=== PATIENT | female | born 1995 | race Caucasian/White ===

== ENCOUNTER 2023-03-19 17:49 | Emergency (ER) | payer OTHER ==
[2023-03-19 17:58] VITALS: BP 120/60; PULSE 68; RESP 18; TEMP 98.5; BMI 24.5
[2023-03-19 20:35] LABS: BASO % 0.4 % (0-2.0); HEMOGLOBIN 13.3 GM/dL (10.7-15.3); MCH 31.2 pg (25.7-33.7); MCHC 34.9 g/dl (32.0-36.0); MEAN CELL VOLUME 89.3 fl (80-96); MEAN PLT VOLUME 7.7 fl (7.5-11.1); NEUT % 56.6 % (42.8-82.8); PLATELET COUNT 362 10^3/uL (134-434); RBC 4.25 M/mm3 (3.60-5.2); RDW 13.4 % (11.6-15.6); WHITE BLOOD COUNT 7.7 K/mm3 (4.0-10.0)
[2023-03-19 20:59] LABS: CALCIUM 8.6 mg/dL (8.5-10.1); POTASSIUM 3.7 mmol/L (3.5-5.1)
[2023-03-19 21:00] LABS: ALBUMIN 3.8 g/dl (3.4-5.0); BLOOD UREA NITROGEN 11.5 mg/dL (7-18)
[2023-03-19 21:03] LABS: CREATININE 0.8 mg/dL (0.55-1.3)
[2023-03-19 21:05] LABS: BILIRUBIN,TOTAL 0.3 mg/dL (0.2-1); TOT PROT 7.3 g/dl (6.4-8.2)
[2023-03-19] MEDS ORDERED: ACETAMINOPHEN 325 MG TABLET (FP) PO STA (22:39)
[2023-03-19] MEDS ORDERED: ACETAMINOPHEN 325 MG TABLET (FP) ONE (22:51)
== END 2023-03-19 23:09 | disposition home or self-care (01) ==
LOC: JER 17:49
DX: O03.9 Complete or unspecified spontaneous abortion without complication (principal)
CPT/HCPCS: 36415; 76817-TC; 80053; 84702; 85025; 86850; 86900; 86901; 99284-25

== ENCOUNTER 2023-03-21 16:41 | Emergency (ER) | payer OTHER ==
[2023-03-21 16:49] VITALS: BP 108/57; PULSE 66; RESP 18; TEMP 98.5; BMI 25.0
== END 2023-03-21 19:52 | disposition home or self-care (01) ==
LOC: JERFT 16:41
DX: O20.8 Other hemorrhage in early pregnancy (principal); Z3A.01 Less than 8 weeks gestation of pregnancy
CPT/HCPCS: 36415; 84702; 99283-25

== ENCOUNTER 2023-05-14 11:30 | Emergency (ER) | payer OTHER ==
[2023-05-14 12:17] VITALS: PULSE 65; TEMP 98.2; BMI 27.3
[2023-05-14 13:26] LABS: HCG,QUALITATIVE URINE Positive
[2023-05-14 13:27] LABS: PH,URINE 5.5 (5.0-8.0); URINE APPEARANCE CLEAR; URINE BILIRUBIN NEGATIVE (NEGATIVE); URINE COLOR YELLOW; URINE GLUCOSE (UA) TRACE (NEGATIVE); URINE KETONE NEGATIVE (NEGATIVE); URINE LEUK ESTERASE NEGATIVE (NEGATIVE); URINE NITRITE NEGATIVE (NEGATIVE); URINE PROTEIN NEGATIVE (NEGATIVE); URINE UROBILINOGEN 0.2 mg/dL (0.2-1.0)
[2023-05-14 13:48] LABS: BASO % 0.3 % (0-2.0); EOS % 2.1 % (0-4.5); HEMATOCRIT 35.8 % (32.4-45.2); HEMOGLOBIN 12.3 GM/dL (10.7-15.3); LYMPH % 25.9 % (8-40); MCHC 34.5 g/dl (32.0-36.0); MEAN CELL VOLUME 90.1 fl (80-96); MEAN PLT VOLUME 7.8 fl (7.5-11.1); MONO % 7.7 % (3.8-10.2); PLATELET COUNT 310 10^3/uL (134-434); RBC 3.98 M/mm3 (3.60-5.2); RDW 13.3 % (11.6-15.6); WHITE BLOOD COUNT 9.3 K/mm3 (4.0-10.0)
[2023-05-14 14:05] LABS: POTASSIUM 4.1 mmol/L (3.5-5.1)
[2023-05-14 14:08] LABS: ALBUMIN 3.6 g/dl (3.4-5.0); CALCIUM 9.4 mg/dL (8.5-10.1)
[2023-05-14 14:11] LABS: CREATININE 0.6 mg/dL (0.55-1.3)
[2023-05-14 14:13] LABS: BILIRUBIN,TOTAL 0.4 mg/dL (0.2-1); TOT PROT 7.1 g/dl (6.4-8.2)
[2023-05-14 15:25] VITALS: BP 102/65; RESP 19
== END 2023-05-14 15:17 | disposition home or self-care (01) ==
LOC: JER 11:30
DX: O26.891 Other specified pregnancy related conditions, first trimester (principal); R10.2 Pelvic and perineal pain; R10.31 Right lower quadrant pain; O21.9 Vomiting of pregnancy, unspecified; O34.81 Maternal care for other abnormalities of pelvic organs, first trimester; N83.201 Unspecified ovarian cyst, right side; Z3A.08 8 weeks gestation of pregnancy
CPT/HCPCS: 36415; 76817-TC; 80053; 81003; 84702; 84703; 85025; 87086; 87186; 99284-25